=== PATIENT | female | born 1985 | race Caucasian/White ===

== ENCOUNTER 2022-12-26 19:49 | Emergency (ER) | payer SELFPAY ==
[~2022-12-26] VITALS: Ht 165.1 cm; Wt 52.2 kg
[2022-12-26] MEDS ORDERED: ACETAMINOPHEN ES 500 MG TABLET PO ONE (23:00)
[2022-12-26] MEDS ORDERED: CYCLOBENZAPRINE 10 MG TABLET ONE (23:01)
[2022-12-26] MEDS ORDERED: ACETAMINOPHEN ES 500 MG TABLET ONE (23:01)
[2022-12-26] MEDS: CYCLOBENZAPRINE 10 MG TABLET PO ONE ×2 (23:02→23:05)
[2022-12-26 23:15] VITALS: BP 110/78; TEMP 98; O2SAT 99
== END 2022-12-26 23:16 | disposition home or self-care (01) ==
LOC: ER 19:56
DX: S09.90XA Unspecified injury of head, initial encounter (principal); M54.2 Cervicalgia; M25.561 Pain in right knee; M25.571 Pain in right ankle and joints of right foot; M54.6 Pain in thoracic spine; M54.50 Low back pain, unspecified; J45.909 Unspecified asthma, uncomplicated; F41.9 Anxiety disorder, unspecified; Z88.2 Allergy status to sulfonamides; Z88.0 Allergy status to penicillin; W01.0XXA Fall on same level from slipping, tripping and stumbling without subsequent striking against object, initial encounter; Y93.01 Activity, walking, marching and hiking; Y92.512 Supermarket, store or market as the place of occurrence of the external cause; Y99.8 Other external cause status
CPT/HCPCS: 70450-TC; 72125-TC; 72128-TC; 72131-TC; 73564-TC; 73590-TC; 73610-TC; 73630-TC